=== PATIENT | female | born 1960 | race Caucasian/White ===

== ENCOUNTER 2021-05-26 08:21 | Emergency (ER) | payer OTHER ==
[~2021-05-26] VITALS: Ht 172.7 cm; Wt 90.7 kg
[2021-05-26] MEDS ORDERED: LISINOPRIL20 MG PO (08:33)
[2021-05-26] MEDS ORDERED: HYDROCODON-ACE1 EAC7 PO (10:44)
[2021-05-26 11:11] VITALS: BP 130/86
== END 2021-05-26 11:12 | disposition home or self-care (01) ==
LOC: M.ERS 08:21
DX: S42.291A Other displaced fracture of upper end of right humerus, initial encounter for closed fracture (principal); I10 Essential (primary) hypertension; Z90.710 Acquired absence of both cervix and uterus; W01.0XXA Fall on same level from slipping, tripping and stumbling without subsequent striking against object, initial encounter; Y93.89 Activity, other specified; Y92.89 Other specified places as the place of occurrence of the external cause; Y99.8 Other external cause status